=== PATIENT | female | born 1995 | race Caucasian/White ===

== ENCOUNTER 2018-04-08 07:03 | Outpatient (CLI) | payer OTHER ==
--- NOTE | 2018-04-08 09:17 | ULT ---
ULTRASOUND ABDOMEN: Date: 04/08/18 HISTORY: Celiac disease, epigastric pain. FINDINGS: The liver, spleen, gallbladder, pancreas, kidneys, and visualized portions of the aorta and IVC appea r normal. The common duct measures 4.0 mm in diameter. No free fluid is seen. IMPRESSION: Normal exam. POS: [facility]
== END 2018-04-08 07:04 | disposition home or self-care (01) ==
LOC: SCSULT 07:03
PROVIDERS: ATTEND Internal Medicine Gastroenterology
DX: K90.0 Celiac disease (principal); R10.13 Epigastric pain; R11.2 Nausea with vomiting, unspecified
CPT/HCPCS: 76700